=== PATIENT | male | born 1955 | race Caucasian/White ===

== ENCOUNTER 2020-03-28 06:53 | Day surgery (SDC) | payer OTHER ==
[2020-03-25 10:12] LABS: HEMATOCRIT 42.6 % (42.0-52.0); HEMOGLOBIN 14.8 gm/dL (14.0-18.0); MCH 30.6 pg (26.0-34.0); MCHC 34.7 g/dL (28.0-37.0); MCV 88.1 fL (80.0-100.0); RBC 4.83 mil/uL (4.50-6.00); RDW 13.2 % (10.5-14.5); WBC 5.6 thou/uL (4.0-11.0)
[2020-03-25 10:27] LABS: URINE BILIRUBIN NEGATIVE (Negative); URINE BLOOD NEGATIVE (Negative); URINE CLARITY CLEAR; URINE COLOR YELLOW; URINE GLUCOSE-RANDOM* NEGATIVE (Negative); URINE KETONES NEGATIVE (Negative); URINE LEUKOCYTES-REFLEX NEGATIVE (Negative); URINE NITRITE-REFLEX NEGATIVE (Negative); URINE PROTEIN (DIPSTICK) NEGATIVE (Negative); URINE SPECIFIC GRAVITY >= 1.030 (1.005-1.035); URINE UROBILINOGEN 0.2 E.U./dl (0.2-1.0)
[2020-03-25 10:29] LABS: PROTIME 10.4 Seconds (9.3-11.4)
[~2020-03-28] VITALS: Ht 175.3 cm; Wt 91.6 kg
[~2020-03-28 06:53] MED LIST: ALENDRONATE SOD70 MG PO; ASA81BEC PO; CARBAMAZEPINE100 M2 PO; CLONAZEPAM 0.50.5 M1 PO; CO Q-10100 M1 PO; ESCITALOPRAM OX10 MG PO; FAMOTIDINE40 MG PO; LEVOTHYROXINE50 MCG PO; LUTEIN-ZEAXANT1 EACH PO; MAG-OXIDE400 MG PO; METFORMIN HCL500 MG PO; PIROXICAM20 MG PO; RAMIPRIL2.5 MG PO; ROSUVASTATIN CA40 MG PO; STIOLTO RESPIMAT4 GM INH; VASCEPA0.5 GM PO; VITAMIN D21250 MC1 PO; VITAMIN D3100 MCG PO
[2020-03-28 07:02] VITALS: BP 151/77
--- NOTE | 2020-03-28 09:40 | O ---
[facility] [place] [address] OPERATIVE REPORT Name: JAKE GUZMAN Room #: 150-4 [facility]#: [id number] Admission: 03/25/20 Attend Phys: Jett Murrell MD Discharge: Date of : 55 Report #: [id number] THIS REPORT FOR: cc: GALINA - Family physician unknown FAM - Family physician unknown Jett Murrell MD ~ CC: Jett MOJICA unknown PREOPERATIVE DIAGNOSIS: Degenerative arthritis, right knee. POSTOPERATIVE DIAGNOSIS: Degenerative arthritis, right knee. PROCEDURE: Right knee medial hemiarthroplasty. 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 He has much less discomfort on the lateral side and at the patella. We have discussed treatment options including conservative management or total knee replacement. We both feel that a medial hemiarthroplasty will be helpful with his severe medial joint line pain and I think he is probably stable and still has adequate cartilage in the other compartments. DESCRIPTION OF PROCEDURE: The patient was taken to the operating room where he was placed under general anesthesia. A femoral nerve block was also applied. Intravenous antibiotics were administered. The right knee and leg were meticulously prepped and draped. A thigh tourniquet inflated to 300 mmHg. An anterior longitudinal skin incision was made just medial to the midline. This was extended from the mid patella down about 2 cm below the joint line. The dissection was carried into the joint and the medial compartment was visualized. There was minor spurring on the patella and in the lateral compartment, which seemed acceptable. The anterior cruciate ligament is present and seen functioning nicely. There was severe degenerative change in the medial compartment with irregular tearing of the medial meniscus and significant cartilage damage on both the femoral condyle and the tibial plateau. The [employer] [place] knee system was utilized. The cutting guide was applied and the proximal tibial cuts were performed. A size C tibial implant seemed to fit quite nicely. Attention was then directed to the femur. The appropriate cutting guides were applied and the distal femoral cuts were made. A size medium femoral component seemed to fit quite nicely. Appropriate balancing cuts were made to balance the knee in flexion and extension. A 4 mm insert seemed to fit nicely and resulted in very satisfactory alignment and range of motion and stability. The mild preoperative varus malalignment was corrected nicely. [address] [address] OPERATIVE REPORT Name: JAKE GUZMAN Marco Room #: 150-4 [facility]#: [id number] Admission: 03/25/20 Attend Phys: Jett Murrell MD Discharge: Date of : 55 Report #: [id number] These trial components were removed. The bony surfaces were thoroughly irrigated and dried. Appropriate anchor holes were created. Methylmethacrylate cement was mixed and injected first into the tibial surface. The permanent [employer] [place] size C, right tibial platform plate was then introduced. It was impacted into position and seated nicely and appeared to be secure. Excess cement was removed from around its margin. The right medium femoral component was then cemented into place. Excess cement was removed around its margin. It also seated nicely and appeared to be secure. A trial reduction was performed and a 4 mm meniscal bearing fit nicely. This resulted in full knee extension, full knee flexion and good stability. The bearing seemed to track nicely and seemed to be stable. The trial bearing was removed and the permanent 4-mm medial meniscal bearing was snapped into place. It seated nicely and appeared to be secure. At this point, the tourniquet was deflated after a total tourniquet time of 40 minutes. Good hemostasis was confirmed. The wound was copiously irrigated. The capsule and fascia were closed with multiple #1 Vicryl sutures. The subcutaneous tissues were closed with 2-0 Monocryl. The skin was closed with skin anthony. Sterile dressing was applied. The patient was awakened and returned to recovery room in good condition. <ELECTRONICALLY SIGNED> By: Jett Murrell MD 03/28/20 [id number] Jett Murrell MD /nt
[2020-03-28 12:24] VITALS: BP 164/84
[2020-03-28 12:56] VITALS: BP 163/95
[2020-03-28 14:06] VITALS: BP 159/89
--- NOTE | 2020-03-28 17:49 | NUR ---
PT ARRIVED ON UNIT, VSS, PAIN CONTROLLED WITH IV PAIN ANALGESIC. PT REPORTS HAVING A HEADACHE. PT RECEIVED PO PAIN ANALGESIC. PT IS TOLERATING DIET WELL, URINAL AT BEDSIDE. PT HAS ICE PACK ON RIGHT LEG. IV LEFT FA PATENT WITH FLUIDS RUNNING. PT SCD AND TEDS ARE ON. NURSE EDUCATED ABOUT CALL LIGHT. WILL CONTINUE TO MONITOR.
[2020-03-28 19:05] VITALS: BP 175/93
[2020-03-28 19:50] VITALS: BP 176/93
[2020-03-29] VITALS (7 sets, daily range): BP systolic 103–164; BP diastolic 58–96
--- NOTE | 2020-03-29 02:00 | NUR ---
PT AOX4. PT REPORTS PAIN IN RLE AND A HEADACHE. PT RECEIVING PRN IV MORPHINE Q2HR AND PRN PO NORCO Q4HR. PROVIDED EDUCATION TO PT IN REGARDS TO MEDICATION SIDE EFFECTS, PT RECEPTIVE TO EDUCATION. PT ASSESSED WITH ELEVATED BP WITH THROBBING PAIN IN HEAD AND RLE. ATTENDING PHYSICIAN NOTIFIED, HOSPITALIST CONSULTED. CARE COORDINATED WITH [employer] LOG CLERK, EMAR UPDATED. BP ASSESSED AT 2115 168/90, AT 2130 165/100, AT 2225 141/88, AT 2340 126/74, AND AT 0000 103/58. PT REPORTS A DECREASE IN PAIN. PT RELUCTANT TO AMBULATE, NOTED TO INDEPENDENTLY SHIFT WHILE IN BED. PT REPORTS WORSENING IN PAIN WITH REPOSITIONING. PT ASSESSED WITH COLD BLE, +1 PULSE IN RLE, +2 PULSE IN LLE. PT REPORTS SLIGHT NUMBNESS IN BLE. PT SLEEP INTERRUPTED, PT REPORTING DISCOMFORT IN RIGHT CALF. RIGHT CALF ASSESSED TO BE WARM, TENDER TO TOUCH, FIRM AND SWOLLEN COMPARED TO LEFT CALF. QUIL[employer] LOG CLERK NOTIFIED, RECEIVED ORDERS FOR STAT BILATERAL VENOUS ULTRASOUND.
[2020-03-29 08:53] LABS: HEMATOCRIT 39.6 % (42.0-52.0); HEMOGLOBIN 13.6 gm/dL (14.0-18.0); MCH 30.8 pg (26.0-34.0); MCHC 34.3 g/dL (28.0-37.0); MCV 89.8 fL (80.0-100.0); PLATELET COUNT 180 thou/uL (150-400); RBC 4.41 mil/uL (4.50-6.00); RDW 13.3 % (10.5-14.5); WBC 9.4 thou/uL (4.0-11.0)
[2020-03-29 09:10] LABS: ALBUMIN 4.3 g/dL (3.4-5.0); CALCIUM 9.3 mg/dL (8.5-10.1); MAGNESIUM 1.6 mg/dL (1.8-2.4); POTASSIUM 4.3 mmol/L (3.5-5.1); TOTAL BILIRUBIN 0.4 mg/dL (0.2-1.0); TOTAL PROTEIN 7.6 g/dL (6.4-8.2)
[2020-03-29 09:30] LABS: ABSOLUTE NEUTROPHILS 5.9 thou/uL (1.4-8.2); NUCLEATED RBCS 1 /100WBC; PLATELET ESTIMATE NORMAL
[2020-03-29] MEDS ORDERED: MIRALAX17 GM PO (10:36)
[2020-03-29] MEDS ORDERED: COLACE100 MG PO (10:36)
--- NOTE | 2020-03-29 14:26 | NUR ---
Pt needing FWW for home use. DC today per the care team. Pt doing well with therapy. Provider PLus to issue his walker this afternoon. Script dropped off to the PP liason. No other cm interventions indicated. Pt has supportive spouse at home for assist as needed.
--- NOTE | 2020-03-29 17:20 | NUR ---
DISCHARGE PAPERS GONE OVER WITH PATIENT SIGNED AND COPY IN CHART. IV ACSESS DCD. WALKER DELIEVERED. RX'S GIVEN. PT GIVEN PRN PAIN MED BEFORE DC ALL BELONGINGS PACKED AND SENT WITH PATIENT. PT TAKEN VIA W/C TO FAMILY CAR.
== END 2020-03-29 17:27 | disposition home or self-care (01) ==
LOC: 4S 06:53 → OR 06:53 → TBA 06:53 → 4S 10:42 → OR 13:27
PROVIDERS: Nurse Practitioner; ATTEND Orthopaedic Surgery
DX: M17.11 Unilateral primary osteoarthritis, right knee (principal); M25.561 Pain in right knee; R22.43 Localized swelling, mass and lump, lower limb, bilateral; I10 Essential (primary) hypertension; E78.00 Pure hypercholesterolemia, unspecified; E03.9 Hypothyroidism, unspecified; K21.9 Gastro-esophageal reflux disease without esophagitis; Z98.890 Other specified postprocedural states; Z79.899 Other long term (current) drug therapy; Z11.59 Encounter for screening for other viral diseases; Z90.49 Acquired absence of other specified parts of digestive tract
CPT/HCPCS: 10102; 50010; 50101; 50415; 51130; 51225; 51412; 56525; 57095; 57103; 58111; 58162; 58163; 62110; 62900; 70005